=== PATIENT | male | born 1940 | race Caucasian/White ===

== ENCOUNTER 2016-09-14 13:03 | Emergency (ER) | payer MEDICARE, OTHER ==
[2016-09-14 13:20] VITALS: TEMP 98
[2016-09-14] MEDS ORDERED: ASPIRIN TABLET 325 MG TAB PO ONE (13:57)
[2016-09-14] MEDS ORDERED: SODIUM CHLORIDE 0.9% (FLUSH) 10 ML SYG IV PRN (13:57)
[2016-09-14] MEDS ORDERED: NITROGLYCERIN 0.4 MG 25 EA TAB SL ONE ×2 (13:57→18:46)
--- NOTE | 2016-09-14 13:57 | ED.PDOC ---
History of Present Illness - General Chief Complaint: Chest Pain/CO Stated Complaint: chest pain Time Seen by Provider: 09/14/16 13:57 Source: patient Exam Limitations: no limitations - History of Present Illness Initial Comments: [place] 75 y/o male with history of dm2 and HTN stated that he had left sided chest pain yesterday which comes and goes lasting for about seconds he mentioned that he had played golf yesterday but no chest pain thinking that he has muscle strain.Last night was sweaty and had same symptoms which went away after a few seconds.No previous history of heart problems. Timing/Duration: 24 hours, intermittent, resolved prior to arrival Location: other - left sided Activities at Onset: none Prior Chest Pain/Cardiac Workup: cardiolye scan - 6 years ago, echocardiography Improving Factors: nothing Worsening Factors: nothing Nitro Today/Relief: no nitro taken today, provided by ED Aspirin Treatment Today: 81 mg x 1 Associated Symptoms: denies symptoms Allergies/Adverse Reactions: Allergies Penicillins Allergy (Verified 09/14/16 13:20) Home Medications: Ambulatory Orders Aspirin 325 mg PO DAILY 10/30/13 Ezetimibe-Simvastatin [Vytorin 10-40 mg] 1 tab PO DAILY 10/30/13 Glipizide [Glipizide ER] 10 mg PO BID 10/30/13 Lisinopril 20 mg PO BID 10/30/13 Metformin HCl 500 mg PO BID 10/30/13 Metoprolol Succinate [Metoprolol Succinate ER] 50 mg PO BID 10/30/13 Pantoprazole Sodium 40 mg PO DAILY 10/30/13 Pioglitazone HCl 45 mg PO DAILY 10/30/13 Ranitidine HCl 150 mg PO BID 10/30/13 Tadalafil [Cialis] 5 mg PO DAILY 10/30/13 Nitroglycerin 0.4 mg (ER Disp) [Nitrostat] 0.4 mg SL Q5MIN PRN #30 tab 09/14/16 Review of Systems - Review of Systems Constitutional: States: no symptoms reported EENTM: States: no symptoms reported Respiratory: States: no symptoms reported Cardiology: States: see HPI Gastrointestinal/Abdominal: States: other - occasional abdominal cramps Genitourinary: States: no symptoms reported Musculoskeletal: States: no symptoms reported Skin: States: no symptoms reported Neurological: States: no symptoms reported Endocrine: States: no symptoms reported Hematologic/Lymphatic: States: no symptoms reported Past Medical History (General) - Patient Medical History Hx Congestive Heart Failure: No Hx Hypertension: Yes Hx Diabetes: Yes Surgical History: no surgical history, other - orif-Fx left forearm - Vaccination History Hx Tetanus, Diphtheria Vaccination: No Hx Influenza Vaccination: No Hx Pneumococcal Vaccination: No - Social History Hx Tobacco Use: No Hx Alcohol Use: No Hx Substance Use: No Hx Substance Use Treatment: No Hx Depression: No - Activities of Daily Living Patient Lives Alone: No - Hospice Agency (if applicable):: None - Female History Patient is a Female of Child Bearing Age (10 -59 yrs old): No Patient : No Family Medical History - Family History Mother Family History: Unknown Hx Family Cancer: Yes - leukemia several family members Physical Exam - Physical Exam General Appearance: Alert, Comfortable, No apparent distress Eyes, Ears, Nose, Throat Exam: PERRL/EOMI, normal ENT inspection, TMs normal Neck: non-tender, full range of motion, supple, normal inspection Respiratory: chest non-tender, lungs clear, normal breath sounds, no respiratory distress Cardiovascular/Chest: normal peripheral pulses, regular rate, rhythm, no edema, no gallop, no JVD, no murmur Peripheral Pulses: radial,right: 2+, radial,left: 2+ Gastrointestinal/Abdominal: normal bowel sounds, non tender, soft, no organomegaly, no pulsatile mass Extremity: normal range of motion, non-tender, normal inspection, no pedal edema Neurologic: no motor/sensory deficits, alert, normal mood/affect, oriented x 3 Skin Exam: normal color, warm/dry Lymphatic: no adenopathy Progress - Progress Progress: 09/14/16 18:49 Recommended admission for observation in the hospital due to his risk factors from his diabetes discuss with patient in the presence of his but declined stating has appointment with this coming but advised him to return to er if symptoms recurs. - Results/Orders Results/Orders: 09/14/16 13:57 Telemetry .ONCE Sodium Chloride 0.9% (Flush) [Saline Flush Syringe] 10 ml IV PRN PRN EKG Stat Pulse Ox Stat 09/14/16 13:58 Pulse Oximetry Assessment DAILY Laboratory Results WBC 6.9 K/mm3 (4.8-10.8) 09/14/16 14:10 RBC 4.51 M/mm3 (4.70-6.10) L 09/14/16 14:10 Hgb 14.0 gm/dL (14.0-18.0) 09/14/16 14:10 Hct 41.4 % (42.0-52.0) L 09/14/16 14:10 MCV 91.8 fl (80.0-94.0) 09/14/16 14:10 MCH 31.0 pg (27.0-31.0) 09/14/16 14:10 MCHC 33.8 g/dL (33.0-37.0) 09/14/16 14:10 RDW 13.3 % (11.5-14.5) 09/14/16 14:10 Plt Count 198 K/mm3 (130-400) 09/14/16 14:10 MPV 7.7 fl (7.40-10.4) 09/14/16 14:10 Absolute Neuts (auto) 4.70 K/uL (1.8-6.8) 09/14/16 14:10 Absolute Lymphs (auto) 1.50 K/uL (1.0-3.4) 09/14/16 14:10 Absolute Monos (auto) 0.50 K/uL (0.2-0.8) 09/14/16 14:10 Absolute Eos (auto) 0.20 K/uL (0.0-0.4) 09/14/16 14:10 Absolute Basos (auto) 0.00 K/uL (0.0-0.1) 09/14/16 14:10 Neutrophils % 67.5 % (42.0-78.0) 09/14/16 14:10 Lymphocytes % 22.4 % (20.0-50.0) 09/14/16 14:10 Monocytes % 7.1 % (2.0-9.0) 09/14/16 14:10 Eosinophils % 2.4 % (1.0-5.0) 09/14/16 14:10 Basophils % 0.6 % (0.0-2.0) 09/14/16 14:10 PT 12.1 SECONDS (9.4-12.5) 09/14/16 14:10 INR 1.070 09/14/16 14:10 PTT (SP) 31.7 SECONDS (25.1-36.5) 09/14/16 14:10 D-Dimer, Quantitative < 230 ng/mL (0-230) 09/14/16 14:10 Sodium 132 mmol/L (135-145) L 09/14/16 14:10 Potassium 4.6 mmol/L (3.6-5.0) 09/14/16 14:10 Chloride 98 mmol/L (101-111) L 09/14/16 14:10 Carbon Dioxide 26 mmol/L (21-31) 09/14/16 14:10 Anion Gap 12.6 (12-18) 09/14/16 14:10 BUN 22 mg/dL (7-18) H 09/14/16 14:10 Creatinine 1.23 mg/dL (0.6-1.3) 09/14/16 14:10 BUN/Creatinine Ratio 17.9 (10-20) 09/14/16 14:10 Random Glucose 257 mg/dL (70-105) H 09/14/16 14:10 Serum Osmolality 276.7 mOsm/L (275-295) 09/14/16 14:10 Calcium 8.9 mg/dL (8.4-10.2) 09/14/16 14:10 Magnesium 1.3 mg/dL (1.8-2.5) L 09/14/16 14:10 Creatine Kinase 158 IU/L (38-174) 09/14/16 14:10 CK-MB (CK-2) 2.7 ng/mL (0.0-4.4) 09/14/16 14:10 CK-MB (CK-2) % Not Reportable 09/14/16 14:10 Troponin I < 0.02 ng/mL (0.01-0.05) 09/14/16 16:55 B-Natriuretic Peptide 28.1 pg/ml (0-100) 09/14/16 14:10 - EKG/XRAY/CT XRAY: chest - no acute abnormalities noted radiologist reading Departure - Departure Clinical Impression: Chest pain Time of Disposition: 18:42 Disposition: Discharge to Home or Self Care Condition: Good Departure Forms: ED Discharge - Pt. Copy, Patient Portal Self Enrollment Instructions: DI for Chest Pain Diet: low fat, low cholesterol, diabetic diet Referrals: Stephen James MD [Primary Care Provider] - 1-2 Weeks Prescriptions: Nitroglycerin 0.4 mg (ER Disp) [Nitrostat] 0.4 mg SL Q5MIN PRN #30 tab PRN Reason: Chest Pain Home Medications: Ambulatory Orders Aspirin 325 mg PO DAILY 10/30/13 Ezetimibe-Simvastatin [Vytorin 10-40 mg] 1 tab PO DAILY 10/30/13 Glipizide [Glipizide ER] 10 mg PO BID 10/30/13 Lisinopril 20 mg PO BID 10/30/13 Metformin HCl 500 mg PO BID 10/30/13 Metoprolol Succinate [Metoprolol Succinate ER] 50 mg PO BID 10/30/13 Pantoprazole Sodium 40 mg PO DAILY 10/30/13 Pioglitazone HCl 45 mg PO DAILY 10/30/13 Ranitidine HCl 150 mg PO BID 10/30/13 Tadalafil [Cialis] 5 mg PO DAILY 10/30/13 Nitroglycerin 0.4 mg (ER Disp) [Nitrostat] 0.4 mg SL Q5MIN PRN #30 tab 09/14/16 Additional Instructions: RETURN TO EMERGENCY ROOM NEEDED; KEEP APPOINTMENT WITH PRIMARY MD THIS COMING TUESDAY
[2016-09-14] MEDS: ONDANSETRON INJ 4 MG/2 ML VIAL IV ONE ×2 (14:15→14:19)
--- NOTE | 2016-09-14 14:42 | RAD ---
History: Chest pain. Chest x-ray: AP portable view is obtained. No prior study is available for comparison. Contour of the heart and mediastinum is normal. No pulmonary infiltrate, effusion or pneumothorax. Degenerative changes in the thoracic spine. IMPRESSION: No active process in the chest. Electronically signed by: Joy Platt MD 09/14/2016 2:41 PM CDT
[2016-09-14 18:55] VITALS: BP 111/74; O2SAT 97
== END 2016-09-14 18:55 | disposition home or self-care (01) ==
LOC: ER 13:03
DX: R07.9 Chest pain, unspecified (principal); I10 Essential (primary) hypertension; E11.9 Type 2 diabetes mellitus without complications; Z88.0 Allergy status to penicillin; Z79.82 Long term (current) use of aspirin; Z79.899 Other long term (current) drug therapy

== ENCOUNTER → 2017-09-21 | Outpatient (CLI) | payer MEDICARE | LOC: GMAJ 10:30 | PROVIDERS: ATTEND Family Medicine | DX: N40.0 Benign prostatic hyperplasia without lower urinary tract symptoms (principal) ==

== ENCOUNTER → 2018-06-08 | Outpatient (CLI) | payer MEDICARE | LOC: GMAJ 11:58 | PROVIDERS: ATTEND Family Medicine | DX: E29.1 Testicular hypofunction (principal) ==

== ENCOUNTER → 2019-01-24 | Outpatient (CLI) | payer MEDICARE ==
--- NOTE | 2019-01-24 17:13 | MRI ---
EXAM DESCRIPTION: Lumbar Spine w/o Contrast : Magnetic Resonance Imaging. CLINICAL HISTORY: SPINAL STENOSIS LUMBAR WITH NEUROGENIC CLAUDICATION COMPARISON: LUMBAR TECHNIQUE: Multiplanar, multiple standard sequences, non contrast MRI, lumbar spine. FINDINGS: L5-S1: The disc is well visualized on axial T2 series 501, image 3. Disc desiccation and disc space loss. Anterior and bilateral disc bulging. Posterior bulge into the canal. Mild narrowing of the right subarticular recess. Minimal bilateral facet arthrosis and flavum ligament thickening. AP canal diameter 11 mm. Moderate endplate reactive changes to the right of midline with disc osteophyte complex encroaching on the right L5 nerve in the foramen which is stenotic. Mild left foraminal stenosis with the bulging disc abutting the exiting L5 nerve. L4-5: Disc desiccation with anterior bulging. Anterior mild endplate reactive changes. Tiny posterior disc bulge. Bilateral hypertrophic facet arthrosis and thickening of the flavum ligaments. Mild spondylosis on the left and disc osteophyte complex encroaching on the left L4 nerve with mild foraminal stenosis. Facet abutting the right L4 nerve with moderate narrowing. L3-L4: Disc desiccation with minimal anterior endplate reactive changes. Disc space preserved. Trace posterior bulge. Bilateral hypertrophic facet arthrosis and ligament thickening more on the left. AP canal diameter 13 mm. Bilateral mild to moderate foraminal narrowing. L2-L3: Minimal disc desiccation with disc space preserved. No posterior bulging. Anterior left disc bulge with endplate ridging. Minimal canal ligament thickening. Canal narrowing. Bilateral foramina are patent. L1-L2: Normal signal in the disc with disc space preserved. No posterior bulging. Minimal ligament thickening. Canal and bilateral foramina are patent. T12-L1: Disc space preserved with minimal disc desiccation. Posterior elements unremarkable. Canal and foramina are patent. Conus terminates below the disc space. L2-L4 dextroscoliosis. Paravertebral soft tissues unremarkable.. Cord normal signal and caliber. Normal marrow signal in the remaining vertebral bodies and the posterior elements. Vertebral bodies are not compressed at any level. IMPRESSION: 1. Disc desiccation and disc space loss at L5-S1. Posterior bulge into the canal. Moderate spondylosis on the right with encroachment on the right L5 nerve and foraminal stenosis. Bulging disc on the left abutting the left L5 nerve with foraminal stenosis. Moderate canal narrowing. 2. L4-5: Left side spondylosis and encroachment on the left L4 nerve in the foramen with stenosis. Moderate canal narrowing. 3. Hypertrophy of the posterior elements at L3-4 with moderate canal narrowing. Bilateral mild to moderate foraminal narrowing. Electronically signed by: Delvin Ibarra MD 01/24/2019 5:12 PM CDT
== END ==
LOC: MRI 10:00
PROVIDERS: ATTEND Family Medicine
DX: M48.062 Spinal stenosis, lumbar region with neurogenic claudication (principal); M51.37 Other intervertebral disc degeneration, lumbosacral region; M47.896 Other spondylosis, lumbar region; M51.86 Other intervertebral disc disorders, lumbar region

== ENCOUNTER → 2019-03-09 | Outpatient (CLI) | payer MEDICARE | LOC: GMAJ 12:30 | PROVIDERS: ATTEND Family Medicine | DX: E78.00 Pure hypercholesterolemia, unspecified (principal); E29.1 Testicular hypofunction; E11.9 Type 2 diabetes mellitus without complications; N40.0 Benign prostatic hyperplasia without lower urinary tract symptoms ==

== ENCOUNTER → 2020-03-12 | Outpatient (CLI) | payer MEDICARE | LOC: GMAJ 10:37 | PROVIDERS: ATTEND Family Medicine | DX: E29.1 Testicular hypofunction (principal); I10 Essential (primary) hypertension; E11.9 Type 2 diabetes mellitus without complications; I50.22 Chronic systolic (congestive) heart failure ==

== ENCOUNTER → 2020-07-15 | Outpatient (CLI) | payer MEDICARE | LOC: GMAJ 11:13 | PROVIDERS: ATTEND Family Medicine | DX: Z12.5 Encounter for screening for malignant neoplasm of prostate (principal); I10 Essential (primary) hypertension; E11.9 Type 2 diabetes mellitus without complications ==